=== PATIENT | female | born 1990 | race Caucasian/White ===

== ENCOUNTER 2016-12-18 21:44 | Emergency (ER) | payer OTHER ==
[2016-12-18 22:08] VITALS: BP 114/72
--- NOTE | 2016-12-18 22:25 | ER Document Report ---
HPI - HPI Patient complains to provider of: UTI Onset: Yesterday Onset/Duration: Gradual Quality of pain: Burning Pain Level: 3 Context: Patient complains of urinary frequency, dysuria and malodorous urine. Patient does report some lower back pain. No fever. Patient has had a history of UTIs in the past and suspects the same today. Associated Symptoms: denies: Fever, Vomiting Exacerbated by: Denies Relieved by: Denies Similar symptoms previously: Yes Recently seen / treated by doctor: No - ROS ROS below otherwise negative: Yes Systems Reviewed and Negative: Yes All other systems reviewed and negative - CONSTITUTIONAL Constitutional: DENIES: Fever, Chills - GASTROINTESTINAL Gastrointestinal: DENIES: Abdominal Pain - URINARY Urinary: REPORTS: Dysuria, Urgency, Frequency - REPRODUCTIVE LMP: CONTROL - MUSCULOSKELETAL Musculoskeletal: REPORTS: Back Pain. 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 IN LAST 30 DAYS: No - HEENT HEENT: Atraumatic, Normocephalic - NECK Neck: Normal Inspection - RESPIRATORY Respiratory: Breath Sounds Normal, No Respiratory Distress O2 Sat by Pulse Oximetry: 97 - CARDIOVASCULAR Cardiovascular: Regular Rate, Regular Rhythm - BACK Back: Normal Inspection. negative: CVA Tenderness-Right, CVA Tenderness-Left Notes: Lower lumbar paraspinal tenderness - MUSCULOSKELETAL/EXTREMETIES Musculoskeletal/Extremeties: JENN BOLDEN - NEURO Level of Consciousness: Awake, Alert, Appropriate Motor/Sensory: No Motor Deficit - DERM Integumentary: Warm, Dry Course - Vital Signs Vital signs: Temp Pulse Resp BP Pulse Ox 98.7 F 81 18 114/72 97 12/18/16 22:06 12/18/16 22:06 12/18/16 22:06 12/18/16 22:06 12/18/16 22:06 - Laboratory Laboratory results interpreted by me: 12/18/16 23:36 Labs- Entire Visit 12/18/16 22:15 Urine Color ALINE Urine Appearance CLEAR Urine pH 7.0 Ur Specific Burgin 1.003 Urine Protein NEGATIVE Urine Glucose (UA) NEGATIVE Urine Ketones NEGATIVE Urine Blood NEGATIVE Urine Nitrite POSITIVE H Urine Bilirubin NEGATIVE Urine Urobilinogen 4.0 H Ur Leukocyte Esterase NEGATIVE Urine RBC RARE Urine WBC RARE Ur Squamous Epith Cells FEW Urine Bacteria 2+ Urine Ascorbic Acid NEGATIVE Urine HCG, Qual NEGATIVE Discharge - Discharge Clinical Impression: UTI (urinary tract infection) Qualifiers: Urinary tract infection type: site unspecified Hematuria presence: without hematuria Qualified Code(s): N39.0 - Urinary tract infection, site not specified Condition: Stable Disposition: HOME, SELF-CARE Instructions: Trimethoprim-Sulfa ([facility]), Urinary Anesthetic Agent ([facility]), Urinary Tract Infection ([facility]) Additional Instructions: Return immediately for any new or worsening symptoms Followup with your primary care provider, call tomorrow to make a followup appointment Prescriptions: Phenazopyridine HCl [Pyridium 200 mg Tablet] 200 mg PO TID #15 tablet Sulfamethoxazole/Trimethoprim [Bactrim Ds Tablet] 1 each PO BID #10 tablet Referrals: [facility] [Provider Group] - Follow up as needed
[2016-12-18 22:49] LABS: APPEARANCE,URINE CLEAR; BILIRUBIN,URINE NEGATIVE (NEGATIVE); GLUCOSE, URINE NEGATIVE (NEGATIVE); KETONES,URINE NEGATIVE (NEGATIVE); LEUKOCYTE ESTERASE,URINE NEGATIVE (NEGATIVE); NITRITE,URINE POSITIVE (NEGATIVE); PROTEIN,URINE NEGATIVE (NEGATIVE); URINE SPECIFIC GRAVITY 1.003
[2016-12-18 23:04] LABS: BACTERIA,URINE 2+ /HPF; RBC,URINE RARE /HPF; WBC,URINE RARE /HPF
[2016-12-18] MEDS ORDERED: PHENAZOPYRIDINE HCL 200 MG TABLET PO ONE (23:35)
[2016-12-18] MEDS ORDERED: SULFAMETHOXAZOLE/TRIMETHOPRIM 800-160 MG TABLET PO ONE (23:35)
== END 2016-12-18 23:54 | disposition home or self-care (01) ==
LOC: ER 21:44
DX: N39.0 Urinary tract infection, site not specified (principal); Z90.49 Acquired absence of other specified parts of digestive tract
CPT/HCPCS: 99283; 81025; 81001; J3490

== ENCOUNTER 2017-03-30 18:29 | Emergency (ER) | payer OTHER ==
[2017-03-30 18:35] VITALS: BP 127/85
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
[2017-03-30] MEDS ORDERED: HYDROCODONE/ACETAMINOPHEN 5-325 MG (6 TAB/ER DISP) PO PRN (20:31)
== END 2017-03-30 20:48 | disposition home or self-care (01) ==
LOC: ER 18:29
DX: S20.212A Contusion of left front wall of thorax, initial encounter (principal); S70.10XA Contusion of unspecified thigh, initial encounter; S40.029A Contusion of unspecified upper arm, initial encounter; V03.00XA Pedestrian on foot injured in collision with car, pick-up truck or van in nontraffic accident, initial encounter; Y93.89 Activity, other specified; Y92.481 Parking lot as the place of occurrence of the external cause; R07.81 Pleurodynia; M25.512 Pain in left shoulder; M25.522 Pain in left elbow; M79.652 Pain in left thigh; M54.9 Dorsalgia, unspecified
CPT/HCPCS: 99283